=== PATIENT | female | born 1975 | race Caucasian/White ===

== ENCOUNTER → 2017-04-03 | Outpatient (CLI) | payer OTHER ==
--- NOTE | 2017-04-03 16:15 | MAMMOGRAPHY REPORT ---
THIS REPORT HAS BEEN AMENDED. BILATERAL DIGITAL DIAGNOSTIC MAMMOGRAM TOMOSYNTHESIS WITH CAD AND TARGETED RIGHT ULTRASOUND: 04/03/2017 CLINICAL HISTORY: 41-year-old woman with a palpable lump in the superior right breast that she noted approximately 2 and half weeks ago. History of prior left breast stereotactic biopsies and right josue ast surgical excisional biopsy all of which reportedly yielded benign pathology. No family history o f breast cancer. TECHNIQUE: Breast tomosynthesis in addition to standard 2D mammography was performed. Spot magnific ation views of each breast were also performed. Current study was also evaluated with a Computer Aid ed Detection (CAD) system. COMPARISON: No prior exams were available for comparison. BREAST COMPOSITION: The tissue of both breasts is extremely dense, which lowers the sensitivity of m ammography. FINDINGS: A triangle skin palpable marker overlies the 12:00 anterior right breast, denoting the palp able lump pointed out by the patient. There is a linear scar marker overlying the 6:00 posterior rig ht breast, and 2 metallic biopsy markers within the superior middle one third of the left breast (berto roximate 11:00 and 12:00 axes). There are multiple bilateral circumscribed masses. The circumscribe d borders are best appreciated on the tomosynthesis images. These masses most likely represent cysts , given the numerous bilateral nature. The largest circumscribed masses are present in the superior left breast. No spiculated or irregular mass, focal area of architectural distortion is identified. There are loosely grouped microcalcifications in the upper outer posterior right breast, rounded pun ctate in morphology. A few layering microcalcifications in the superior middle one third of the righ t breast. Overall there are no suspicious grouped or clustered micro-calcifications in the right josue ast. Within the left breast, there are clusters of punctate microcalcifications both medially and la terally, throughout the superior aspect of the breast. One of the metallic biopsy markers is located within a 4 x 9 mm cluster. The second metallic biopsy marker is located adjacent to an 11 x 9 mm cl uster in the upper inner quadrant, and there are at least 2 clusters of punctate microcalcifications in the upper outer posterior aspect measuring 2 and 3 mm in diameter. Comparison to prior outside ma mmograms is needed to assess stability. Targeted ultrasound was performed to the area of palpable lump pointed out by the patient (12:00 righ t breast, 1 cm from the nipple). On palpation there is a 1-2 cm soft mobile mass. On ultrasound, th ere is dense glandular tissue with numerous interspersed cysts. The dominant cyst is located adjacen t to the pectoralis muscle measuring 2.0 x 1.1 x 1.8 cm. Numerous other smaller cysts are best visua lized on the cine images. No suspicious solid mass is seen. IMPRESSION: ACR BI-RADS CATEGORY 0: INCOMPLETE EVALUATION: NEED ADDITIONAL IMAGING EVALUATION, TARG ETED ULTRASOUND ACR BI-RADS CATEGORY 0: INCOMPLETE EVALUATION: NEED ADDITIONAL IMAGING EVALUATION 1. The new palpable lump in the 12:00 anterior right breast correlates with numerous cysts and fibro cystic changes on ultrasound. No suspicious solid mass is seen. Continued clinical monitoring is re commended. 2. No other suspicious mass, focal area of architectural distortion or suspicious microcalcification s are seen in the right breast mammographically. 3. There are several clusters of microcalcifications throughout the superior left breast and 2 assoc iated biopsy marker clips. Comparison to prior spot magnification views and prior mammograms is need ed to assess stability of the non-biopsied clusters of microcalcifications. Once the outside images are received, an addendum will be made to this report. These results and recommendations were discussed with the patient at the time of the exam. Approximately 10% of breast cancers are not detected with mammography. A negative mammographic report should not delay biopsy if a clinically suggestive mass is present. Elizabeth Chance M.D. ay/:04/03/2017 14:11:41 Credit Union Examiner: [place] SPEAR(Aditya)(M), [facility] letter sent: Need Priors 0 BI-RADS Code: ACR BI-RADS Category 0: Incomplete Evaluation: Need Additional Imaging Evaluation Ult rasound BI-RADS: ACR BI-RADS Category 0: Incomplete Evaluation: Need Additional Imaging Evaluation AMENDMENT: 04/11/2017 Elizabeth Chance M.D. Prior outside mammograms and ultrasound images were obtained. For images during ultrasound-guided as piration in the 9:00 right breast are available dated 06/20/2011. There is a bilateral breast ultras ound dated 06/15/2011, bilateral mammograms including left spot magnification views from 05/10/2015, specimen radiographs from 05/26/2015. There are left CC and MLO views from 12/02/2015, and additiona l specimen radiographs from 12/02/2015. The pattern and distribution of the clusters of microcalcifications in the left breast are similar to the cc view performed 12/02/2015. There is a small faint cluster of punctate microcalcifications in the lateral posterior left breast, 8.2 cm distal to the nipple that is unchanged comparing to 2016, but not clearly seen on the available 2015 mammograms, although technique is different. However, thi s cluster appears similar to the other 2 clusters of microcalcifications in the left breast which wer e previously biopsied. The specimen x-rays demonstrate passenger relations representative microcalcifications within the samples confirming adequate tissue sampling and presumably pathology was benign. Therefore I think it is reasonable to recommend a short interval follow-up diagnostic left mammograms with repeat spot magnification views in the upper outer posterior breast to ensure stability in 6 months. When comparing to the prior ultrasounds, the palpable grouping of cysts in the 12:00 right breast was present on the prior outside ultrasound dated 06/15/2011. Amended BI-RADS: ACR-BI-RADS Category 3: Probably Benign letter sent: Follow Up Recommended 3
== END | disposition home or self-care (01) ==
LOC: C.MAMM 10:40
PROVIDERS: ATTEND Surgery
DX: Z12.31 Encounter for screening mammogram for malignant neoplasm of breast (principal); R92.0 Mammographic microcalcification found on diagnostic imaging of breast

== ENCOUNTER → 2017-10-04 | Outpatient (CLI) | payer OTHER ==
--- NOTE | 2017-10-04 14:35 | MAMMOGRAPHY REPORT ---
UNILATERAL LEFT DIGITAL DIAGNOSTIC MAMMOGRAM TOMOSYNTHESIS WITH CAD: 10/04/2017 CLINICAL HISTORY: Six-month follow-up of left breast calcifications. History of benign left breast s tereotactic biopsies. TECHNIQUE: Breast tomosynthesis in addition to standard 2D mammography was performed. Current study was also evaluated with a Computer Aided Detection (CAD) system. Left CC and MLO 2-D and tomosynthes is images and spot magnification left CC and ML views were obtained. COMPARISON: Comparison is made to exams dated: 04/03/2017 ultrasound, 04/03/2017 mammogram - [facility], 12/02/2015 stereotactic biopsy, 12/02/2015 ultrasound, 12/02/2015 mammogram, and 05/26/20 stereotactic biopsy - [facility]. BREAST COMPOSITION: The tissue of the left breast is extremely dense, which lowers the sensitivity o f mammography. FINDINGS: Again noted are 2 biopsy marker clips in the left superior breast, one at approximately 11: 00 and the other at approximately 12:00, at the site of prior stereotactic biopsies. Residual calcif ications seen adjacent to the biopsy marker clips are stable compared to prior exams. Spot magnifica tion views of the left breast demonstrate a small 5 mm cluster of faint punctate and amorphous calcif ications in the left upper outer quadrant. There is also a small similar appearing 1 mm cluster in t he left lateral breast on the cc view. These clusters appear similar to the previously biopsied calc ifications in the left breast which yielded benign pathology. Additionally, the calcifications are s table on spot magnification views dated 04/03/2017 and are probably benign. The remainder of the left breast is stable compared to prior exams, without suspicious masses, calcif ications, or areas of architectural distortion noted. Multiple round/oval circumscribed masses are a gain seen throughout the left breast, consistent with cysts. IMPRESSION: ACR-BI-RADS CATEGORY 3: PROBABLY BENIGN Small clusters of calcifications within the left upper outer quadrant are stable compared to the March 2017 exam, and appear similar to previously biopsied calcifications which yielded benign pathology. The calcifications are probably benign, and recommend follow-up bilateral diagnostic tomosynthesis m ammograms in 6 months, to reevaluate the left breast calcifications and for routine mammography of th e right breast. The patient has been verbally notified of the results. Approximately 10% of breast cancers are not detected with mammography. A negative mammographic report should not delay biopsy if a clinically suggestive mass is present. Indiana Castellano M.D. ah/:10/04/2017 09:19:34 Numerical Control Machine Operator: Lyla CRANDALL)(Vishnu), [facility] letter sent: Follow Up Recommended 3 BI-RADS Code: ACR-BI-RADS Category 3: Probably Benign
== END | disposition home or self-care (01) ==
LOC: C.MAMM 08:34
PROVIDERS: ATTEND Surgery
DX: R92.1 Mammographic calcification found on diagnostic imaging of breast (principal)